=== PATIENT | male | born 1965 | race Caucasian/White ===

== ENCOUNTER → 2017-01-31 | Day surgery (SDC) | payer MEDICARE, MEDICAID ==
[~2017-01-31] VITALS: Ht 182.9 cm; Wt 88.5 kg
[~2017-01-31] MED LIST: ACETAMINOPH W/CODEINE #3 TAB UD PO PRN; ADV500INH INH; ALBU17IN INH; ALL10TAB27 PO; AZEL0.1S3; BENZ200C44 PO; CIPRODEX OTIC SUSP 7.5ML As Ordered ONE; DILA100C PO; EPINEPHrine 1MG/ML INJ 30ML MD-VIAL As Ordered ONE; ESOM1CAP5 PO; GLYCOPYRROLATE INJ 0.2 MG/ML 2 ML VIAL As Ordered ONE; IPRASOL4 IN; LIDOCAINE 2% INJ 100 MG/5 ML SDV (FOR ANES.) As Ordered ONE; LIDOCAINE W/EPINEPHRINE 1% 20ML VIAL As Ordered ONE; LR 1,000 ML IV SCH; METHYLENE BLUE 0.5% (5MG/ML) 10 ML AMP (PROVAYBLUE)(Q9968 PER 1MG) As Ordered ONE; MIDAZOLAM INJ 2 MG/2 ML VIAL (J2250) As Ordered ONE; MONT10TA2 PO; MORPHINE 10 MG/ML 1ML VIAL IV PRN; NEOSTIGMINE 1MG/ML 5 ML SYRINGE (J2710) As Ordered ONE; ONDANSETRON 4MG/2ML VIAL (J2405) As Ordered ONE; ONDANSETRON 4MG/2ML VIAL (J2405) IV PRN; PERCOCET 5MG/325MG TAB As Ordered ONE; PROPOFOL 200 MG/20 ML VIAL As Ordered ONE; QNAS80AE; ROCURONIUM BROMIDE 50 MG/5 ML VIAL As Ordered ONE; SCOPOLAMINE 1.5 MG TRANSDERMAL As Ordered ONE; SCOPOLAMINE 1.5 MG TRANSDERMAL TOP ONE; dexameTHASONE 4 MG/ML 1ML VIAL (J1100) As Ordered ONE; ePHEDrine SULFATE 25 MG/5 ML(5MG/ML) SYRINGE As Ordered ONE; fentaNYL 100 MCG/2 ML INJECTION (J3010) IV PRN; fentaNYL 250 MCG/5 ML INJECTION (J3010) As Ordered ONE
[2017-01-31] MEDS: PERCOCET 5MG/325MG TAB PO PRN ×2 (13:05→15:15)
--- NOTE | 2017-01-31 14:23 | RO ---
DATE OF PROCEDURE: 01/31/2017 PREPROCEDURE DIAGNOSIS: Chronic left otitis media with perforation. POSTPROCEDURE DIAGNOSIS: Chronic left otitis media with perforation. PROCEDURE: Left tympanoplasty. SURGEON: Dr. Fredy Morrell IN HOUSE CRA: ANESTHESIA: DESCRIPTION OF PROCEDURE: FINDINGS: The patient had polyps within the middle ear canal through the perforation which were removed. Patient has a moderate sized inferior perforation. A medial graft was placed. A temporalis fascia graft was placed. Under general anesthesia with the patient intubated, the patient was prepped and draped in the usual manner and the above findings were seen. The ear was cleaned with Betadine and saline. I removed the polyps. I infiltrated with lidocaine and epinephrine. I made a posterior tympanotomy incision. I made radial incisions. I made a post auricular incision down to the mastoid bone. I harvested the temporalis fascia graft. I then joined the posterior and canal dissections. Once this was done, I continued the posterior tympanotomy incision inferiorly and anteriorly and then I dissected down there to the middle ear space. I cleaned out the middle ear space. There were polyps and thick fluid. Once this was cleaned I used adrenaline 1:100,000 to dry it up. Once this was done then I put some dry Gelfoam in the middle ear and put the temporalis fascia graft in the middle ear. I did trim it prior to putting it in. I did elevate the tympanic membrane off of the head of the malleus. I then tucked it anteriorly and made sure it was in good position then laid the drum back down. Once I did that I made sure that the drum was well covering the hole of the perforation. I covered the lateral aspect with more Gelfoam. The canal wall was returned to original position, stented up with an iodoform gauze and then postauricular incision closed with #3-0 chromic and #3-0 Prolene. The patient tolerated the procedure well. The wound is dressed. The patient was extubated and transferred to the recovery room in excellent condition.
[2017-01-31 15:40] VITALS: BP 142/91
== END | disposition home or self-care (01) ==
LOC: M SDC 08:01
PROVIDERS: ATTEND Otolaryngology
DX: H65.92 Unspecified nonsuppurative otitis media, left ear (principal); H72.92 Unspecified perforation of tympanic membrane, left ear; E78.5 Hyperlipidemia, unspecified; J45.909 Unspecified asthma, uncomplicated; R56.9 Unspecified convulsions; Z79.899 Other long term (current) drug therapy; Z92.21 Personal history of antineoplastic chemotherapy; Z88.8 Allergy status to other drugs, medicaments and biological substances
CPT/HCPCS: 69620; 88302; J1100; J2250; J2405; J2710; J3010

== ENCOUNTER → 2019-02-01 | Outpatient (REF) | payer MEDICARE, MEDICAID ==
[~2019-02-01] MED LIST changes: -ACETAMINOPH W/CODEINE #3 TAB UD PO PRN; -ALL10TAB27 PO; +ALL10TAB28 PO; -BENZ200C44 PO; +BENZ200C70 PO; -CIPRODEX OTIC SUSP 7.5ML As Ordered ONE; -EPINEPHrine 1MG/ML INJ 30ML MD-VIAL As Ordered ONE; -GLYCOPYRROLATE INJ 0.2 MG/ML 2 ML VIAL As Ordered ONE; +IPRA0.00 IN; -IPRASOL4 IN; -LIDOCAINE 2% INJ 100 MG/5 ML SDV (FOR ANES.) As Ordered ONE; -LIDOCAINE W/EPINEPHRINE 1% 20ML VIAL As Ordered ONE; -LR 1,000 ML IV SCH; -METHYLENE BLUE 0.5% (5MG/ML) 10 ML AMP (PROVAYBLUE)(Q9968 PER 1MG) As Ordered ONE; -MIDAZOLAM INJ 2 MG/2 ML VIAL (J2250) As Ordered ONE; -MORPHINE 10 MG/ML 1ML VIAL IV PRN; -NEOSTIGMINE 1MG/ML 5 ML SYRINGE (J2710) As Ordered ONE; -ONDANSETRON 4MG/2ML VIAL (J2405) As Ordered ONE; -ONDANSETRON 4MG/2ML VIAL (J2405) IV PRN; -PERCOCET 5MG/325MG TAB As Ordered ONE; -PROPOFOL 200 MG/20 ML VIAL As Ordered ONE; -ROCURONIUM BROMIDE 50 MG/5 ML VIAL As Ordered ONE; -SCOPOLAMINE 1.5 MG TRANSDERMAL As Ordered ONE; -SCOPOLAMINE 1.5 MG TRANSDERMAL TOP ONE; -dexameTHASONE 4 MG/ML 1ML VIAL (J1100) As Ordered ONE; -ePHEDrine SULFATE 25 MG/5 ML(5MG/ML) SYRINGE As Ordered ONE; -fentaNYL 100 MCG/2 ML INJECTION (J3010) IV PRN; -fentaNYL 250 MCG/5 ML INJECTION (J3010) As Ordered ONE
== END ==
LOC: M LAB REF 15:53
PROVIDERS: ATTEND Otolaryngology
DX: H65.491 Other chronic nonsuppurative otitis media, right ear (principal)